=== PATIENT | male | born 2000 | race Two or more races ===

== ENCOUNTER 2020-03-04 04:30 | Emergency (ER) | payer SELFPAY ==
--- NOTE | 2020-03-04 05:09 | EDM.PDOCBH ---
ED HPI GENERAL MEDICAL PROBLEM - General Chief Complaint: Behavioral/Psych Stated Complaint: RT ARM INJURY Time Seen by Provider: 03/04/20 04:40 Source of Information: Reports: Patient History Limitations: Reports: No Limitations - History of Present Illness INITIAL COMMENTS - FREE TEXT/NARRATIVE: Mr. Hernández is a pleasant 19-year-old man who now presents to the ED at the insistence of his girlfriend, after he self-inflicted numerous scratches to his right forearm yesterday afternoon when he got upset. He states that he "had one of my little episodes" by which he means that sometimes he gets upset and has difficulty calming down. He states that he has scratched his arm in the past. He denies injuring himself in any other way yesterday. He states that he has a psychiatric history of "borderline" schizophrenia, ADHD, anxiety, depression, and insomnia, unmedicated since just prior to his 17th birthday. When asked, he stated that he did not feel that he needed to be psychiatrically hospitalized, but he would like to be referred to a place where he can be restarted on his psychiatric medications. He states that he and his girlfriend just arrived from [place], [place], on their way to [place], and that they are homeless, however, he did like the idea of being referred to [facility]. Here in the ED, the patient is found to be hemodynamically stable, afebrile, saturating 96% on room air. Other than the scratches to his right forearm, the patient denies having a recent fever, chills, sore throat, ear pain, nasal or sinus congestion, cough, dyspnea, chest pain, palpitations, nausea, vomiting, constipation, diarrhea, abdominal pain, urinary symptoms, recent weight gain or weight loss, recent bloody bowel movements or black bowel movements, recent joint aches, headaches, or rashes. The patient does not have a PCP. He has not received an influenza vaccine this season, but agreed to receive one here today. - Related Data Allergies Allergy/AdvReac Type Severity Reaction Status Date / Time No Known Allergies Allergy Verified 03/04/20 04:50 Home Meds: Home Meds . [No Known Home Meds] 09/10/19 [History] Past Medical History Psychiatric History: Reports: ADHD (untreated), Anxiety (untreated), Depression (untreated), Schizophrenia (untreated), Other (See Below) (Insomnia - untreated) Social & Family History - Family History Family Medical History: No Pertinent Family History - Tobacco Use Tobacco Use Status *Q: Current Some Day Tobacco User Tobacco Use Within Last Twelve Months: Vaping (Nicotine + CBD) Years of Tobacco use: 12 Packs/Tins Daily: 0.1 Packs/Tins Daily Comment: Down from 4 ppd - Caffeine Use Caffeine Use: Reports: None - Alcohol Use Alcohol Use History: Yes Alcohol Use Frequency: Socially - Recreational Drug Use Recreational Drug Use: Yes Drug Use in Last 12 Months: Yes Recreational Drug Type: Reports: Cocaine (snorted once 2017), Marijuana/Hashish (last smoked Dec 2019), Methamphetamine (last snorted, smoked Oct 2019), Psilocybin (Mushrooms) (last ate 2017) - Living Situation & Occupation Living situation: Reports: Single, with Significant Other (Girlfriend) Occupation: Unemployed ED ROS GENERAL - Review of Systems Review Of Systems: Comprehensive ROS is negative, except as noted in HPI. ED EXAM, BEHAVIORAL HEALTH - Physical Exam Exam: See Below Exam Limited By: No Limitations General Appearance: Alert, WD/WN, No Apparent Distress Eye Exam: Bilateral Eye: EOMI, Normal Inspection Ears: Normal External Exam, Hearing Grossly Normal Nose: Normal Inspection Throat/Mouth: Normal Inspection, Normal Lips, Normal Voice, No Airway Compromise Head: Atraumatic, Normocephalic Neck: Normal Inspection, Full Range of Motion Respiratory/Chest: No Respiratory Distress, Lungs Clear, Normal Breath Sounds, No Accessory Muscle Use Cardiovascular: Normal Peripheral Pulses, Regular Rate, Rhythm, No Edema, No Gallop, No JVD, No Murmur, No Rub GI/Abdominal: Normal Bowel Sounds, Soft, Non-Tender, No Organomegaly, No Distention, No Abnormal Bruit, No Mass Back Exam: Normal Inspection, Full Range of Motion, NT Extremities: Normal Range of Motion, No Pedal Edema, Normal Capillary Refill, Other (Countless superficial scratches to create an abrasion to the volar aspect of the right forearm. Neurovascular status of the right upper extremity is intact.) Neurological: Alert, Normal Cognition, No Motor/Sensory Deficits, Oriented x 3 Psychiatric: Normal Affect Skin Exam: Warm, Dry, Intact, Normal color, No rash COURSE, BEHAVIORAL HEALTH COMP - Course Vital Signs: Last Vital Signs Temp 36.6 C 03/04/20 04:42 Pulse 63 03/04/20 04:42 Resp 18 03/04/20 04:42 BP 139/63 03/04/20 04:42 Pulse Ox 96 03/04/20 04:42 Orders, Labs, Meds: Medications Discontinued Medications Generic Name Dose Route Start Last Admin Trade Name Lee Ann PRN Reason Stop Dose Admin Influenza Virus Vaccine 1 each 03/04/20 05:05 Pharmacy To Dose - Influenza Vaccine IM 03/04/20 05:06 ONETIME ONE Influenza Virus Vaccine 60 mcg 03/04/20 05:30 03/04/20 05:15 Fluzone Quad [id number] Syringe IM 03/04/20 05:31 60 mcg .ONCE ONE Administration Medical Clearance: 03/04/20 05:01 As above, the patient inflicted his right forearm with countless superficial scratches yesterday afternoon when he became upset. His actions are not a genuine threat to his life or limb, and he denies feeling suicidal. He does not feel he would benefit from psychiatric hospitalization, and I agree with him. He would like to be referred to some place that can get him restarted on his psychiatric medicines; I will refer him to [facility]. The patient will be given an influenza vaccine prior to discharge. Departure - Departure Time of Disposition: 05:02 Disposition: Home, Self-Care 01 Condition: Good Clinical Impression: Self-inflicted injury - Discharge Information *PRESCRIPTION DRUG MONITORING PROGRAM REVIEWED*: Not Applicable *COPY OF PRESCRIPTION DRUG MONITORING REPORT IN PATIENT JOSHUA: Not Applicable Instructions: Self-Destructive Behavior Referrals: PCP,None [Primary Care Provider] - Forms: ED Department Discharge Additional Instructions: You were seen in the emergency room after inflicting numerous scratches to your right forearm when you were upset yesterday afternoon. We recommend that you keep the wound clean with ordinary soap and water when you bathe. You do not need to apply an antibiotic ointment or bandage. We recommend that you follow-up at [facility]: [address] [place] Hahn [phone] If any other problems, please do not hesitate to return to the ER. You were given an influenza vaccine during your ER visit. Sepsis Event Note (ED) - Evaluation Sepsis Screening Result: No Definite Risk - Focused Exam Vital Signs: Vital Signs Temp Pulse Resp BP Pulse Ox 03/04/20 04:42 36.6 C 63 18 139/63 96
[2020-03-04] MEDS ORDERED: FLU VACC QS2020-21(6MOS UP)/PF 60 MCG/0.5 ML SYRINGE IM ONE (05:30)
== END 2020-03-04 05:24 | disposition home or self-care (01) ==
LOC: JD.ED 04:30
DX: S50.811A Abrasion of right forearm, initial encounter (principal); Z23 Encounter for immunization; F17.290 Nicotine dependence, other tobacco product, uncomplicated; X78.8XXA Intentional self-harm by other sharp object, initial encounter
CPT/HCPCS: 90686; 99283; 99283-25; G0008

== ENCOUNTER 2020-03-05 20:57 | Emergency (ER) | payer SELFPAY ==
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
[2020-03-05 23:10] LABS: ACETAMINOPHEN 0 ug/mL (10-30)
== END 2020-03-06 11:20 ==
LOC: JD.ED 20:57
DX: R45.851 Suicidal ideations (principal); E80.4 Gilbert syndrome; Z20.828 Contact with and (suspected) exposure to other viral communicable diseases; F17.290 Nicotine dependence, other tobacco product, uncomplicated
CPT/HCPCS: 36415; 80053; 80306; 80307; 83735; 84443; 85007; 85027; 93005; 93010; 99284; 99285-25; U0002